=== PATIENT | female | born 1940 | race Caucasian/White ===

== ENCOUNTER 2018-04-06 14:46 | Emergency (ER) | payer BC ==
[2018-04-06 14:55] VITALS: TEMP 98.1; BMI 23.7
[2018-04-06] MEDS ORDERED: ONDANSETRON 4 MG/2 ML VIAL IVPB ONE (15:31)
[2018-04-06] MEDS ORDERED: PANTOPRAZOLE SODIUM 40 MG in SODIUM CHLORIDE 100 ML IVPB ONE (15:31)
[2018-04-06] MEDS ORDERED: ACETAMINOPHEN 1000 MG/100 ML VIAL (NON FORMULARY) IVPB ONE (15:31)
--- NOTE | 2018-04-06 16:18 | PDOC ---
History of Present Illness - General Chief Complaint: Pain, Acute Stated Complaint: EPIGASTRIC& MIDDLE BACK PAIN Time Seen by Provider: 04/06/18 14:59 - History of Present Illness Initial Comments: 04/06/18 16:15 "The patient is a 77 year old female, with a significant past medical history of diabetes, hypertension, hyperlipidemia, and stomach ulcers, who presents to the emergency department with 1 week of diffuse abdominal pain and nausea. The patient describes her pain as constant. The pain radiates from her abdomen to her bilateral flank. She reports diarrhea two days ago which has since resolved. The patient reports going to her PCP who performed an ultrasound of her kidneys and gallbladder and obtained blood work with no abnormal findings. She denies recent fevers, chills, headache or dizziness. She denies recent vomit or constipation. She denies recent dysuria, frequency, urgency or hematuria. She denies recent chest pain or shortness of breath. Allergies: NKA Past surgical history: Appendectomy. Social history: Nonsmoker. Denies EtOH use and recreational drug use. Primary Care Physician: Dr. Vadim Krause " Past History - Past Medical History Allergies/Adverse Reactions: Allergies Allergy/AdvReac Type Severity Reaction Status Date / Time No Known Allergies Allergy Verified 04/06/18 15:04 Home Medications: Ambulatory Orders Acetaminophen W/ Codeine #3 [Tylenol # 3 -] 1 tab PO BID PRN 04/06/18 Atenolol [Tenormin -] 25 mg PO DAILY 04/06/18 Atorvastatin Ca [Lipitor] 80 mg PO HS 04/06/18 Diltiazem Cd [Cardizem Cd -] 180 mg PO DAILY 04/06/18 Metformin HCl [Glucophage] 1,000 mg PO BID 04/06/18 Pantoprazole Sodium 40 mg PO DAILY 04/06/18 Polyethylene Glycol 3350 [Miralax (For Daily Use) -] 17 gm PO ONCE #1 bottle Pramipexole Di-HCl [Pramipexole ER] 0.375 mg PO HS 04/06/18 Topiramate 25 mg PO BID 04/06/18 COPD: No Diabetes: Yes HTN: Yes Hypercholesterolemia: Yes - Surgical History Appendectomy: Yes - Suicide/Smoking/Psychosocial Hx Smoking History: Never smoked Review of Systems - Review of Systems Comments:: 05/13/18 16:16 "GENERAL/CONSTITUTIONAL: No fever or chills. No weakness. HEAD, EYES, EARS, NOSE AND THROAT: No change in vision. No ear pain or discharge. No sore throat. CARDIOVASCULAR: No chest pain or shortness of breath. RESPIRATORY: No cough, wheezing, or hemoptysis. GASTROINTESTINAL: + Abdominal pain. Nausea. No vomiting, or constipation. GENITOURINARY: + flank pain, No dysuria, frequency, or change in urination. MUSCULOSKELETAL: No joint or muscle swelling or pain. No neck or back pain. SKIN: No rash NEUROLOGIC: No headache, vertigo, loss of consciousness, or change in strength/ sensation. ENDOCRINE: No increased thirst. No abnormal weight change. HEMATOLOGIC/LYMPHATIC: No anemia, easy bleeding, or history of blood clots. ALLERGIC/IMMUNOLOGIC: No hives or skin allergy. " *Physical Exam - Vital Signs Last Vital Signs Temp Pulse Resp BP Pulse Ox 98.1 F 54 L 19 106/54 98 04/06/18 14:50 04/06/18 14:50 04/06/18 14:50 04/06/18 14:50 04/06/18 14:50 - Physical Exam Comments: 04/06/18 16:16 "GENERAL: Awake, alert, and fully oriented, in no acute distress. HEAD: No signs of trauma EYES: PERRLA, EOMI, sclera anicteric, conjunctiva clear ENT: Auricles normal inspection, hearing grossly normal, nares patent, oropharynx clear without exudates. Moist mucosa NECK: Nontender, no stepoffs, Normal ROM, supple, no lymphadenopathy, JVD, or masses LUNGS: Breath sounds equal, clear to auscultation bilaterally. No wheezes, and no crackles HEART: Regular rate and rhythm, normal S1 and S2, no murmurs, rubs or gallops ABDOMEN: + Mild diffuse tenderness more pronounced in suprapubic area, normoactive bowel sounds. No guarding, no rebound. No masses BACK: + bilateral CVA tenderness EXTREMITIES: Normal range of motion, no edema. No clubbing or cyanosis. No cords, erythema, or tenderness NEUROLOGICAL: Cranial nerves II through XII intact. 5/5 strength and sensation in all extremities, Normal speech, normal gait, normal cerebellar function SKIN: Warm, Dry, normal turgor, no rashes or lesions noted. " ED Treatment Course - LABORATORY CBC & Chemistry Diagram: 04/06/18 16:35 04/06/18 16:35 - RADIOLOGY Radiology Studies Ordered: Category Date Time Status ABDOMEN & PELVIS CT WITH CONTR [CT] Stat CT Scan 04/06/18 15:30 Ordered CHEST PA & LAT [RAD] Stat Radiology 04/06/18 15:31 Ordered Medical Decision Making - Medical Decision Making 04/06/18 16:17 77 F with abdominal pain and bilateral flank pain. Possible pyelo. Pt with diffuse abdominal tenderness. Will r/o colitis with CT. Pt had US last week that reportedly was negative for volodymyr. - Labs, UA - CTAP - GI cocktail 04/06/18 19:00 Labs and UA unremarkable. Pt signed out to oncoming attending, pending CTAP and re-evaluation Case discussed in detail with oncoming Emergency Physician including history, physical exam and ancillary studies. Oncoming Emergency Physician has assumed care for the patient and will complete the evaluation and treatment. Patient is aware of the plan. *DC/Admit/Observation/Transfer Diagnosis at time of Disposition: Constipation, Gas pain - Discharge Dispostion Disposition: HOME Condition at time of disposition: Stable - Prescriptions Prescriptions: Polyethylene Glycol 3350 [Miralax (For Daily Use) -] 17 gm PO ONCE #1 bottle - Referrals Referrals: Vadim Krause MD [Primary Care Provider] - - Patient Instructions Printed Discharge Instructions: Constipation - Post Discharge Activity - Attestations Physician Attestion: 04/11/18 07:53 I, Dr. Jacinto Nunez MD, attest that this document has been prepared under my direction and personally reviewed by me in its entirety. I further attest, that it accurately reflects all work, treatment, procedures and medical decision -making performed by me.
[2018-04-06] MEDS ORDERED: PANTOPRAZOLE SODIUM 40 MG/100 ML BAG IVPB ONE (16:42)
[2018-04-06] MEDS ORDERED: ACETAMINOPHEN INJECTION 100 ML IVPB ONE (16:42)
[2018-04-06] MEDS ORDERED: ONDANSETRON 4 MG/2 ML VIAL ONE (16:43)
[2018-04-06 16:56] LABS: BASO % 0.5 % (0-2.0); EOS % 1.8 % (0-4.5); HEMATOCRIT 33.6 % (32.4-45.2); HEMOGLOBIN 11.7 GM/dL (10.7-15.3); LYMPH % 25.6 % (8-40); MEAN CELL VOLUME 85.8 fl (80-96); MEAN PLT VOLUME 10.4 fl (7.5-11.1); MONO % 5.1 % (3.8-10.2); PLATELET COUNT 212 K/MM3 (134-434); RBC 3.91 M/mm3 (3.60-5.2); WHITE BLOOD COUNT 7.6 K/mm3 (4.0-10.0)
[2018-04-06 17:06] LABS: URINE APPEARANCE CLEAR; URINE BILIRUBIN NEGATIVE (<2.0 mg/dL); URINE COLOR LTYELLOW; URINE GLUCOSE (UA) NEGATIVE (NEGATIVE); URINE KETONE NEGATIVE (NEGATIVE); URINE LEUK ESTERASE NEGATIVE (NEGATIVE); URINE NITRITE NEGATIVE (NEGATIVE); URINE PROTEIN NEGATIVE (NEGATIVE); URINE UROBILINOGEN NEGATIVE mg/dL (0.2-1.0)
[2018-04-06 17:10] LABS: INR 1.04 (0.82-1.09); PROTHROMBIN TIME (PATIENT) 11.7 SEC (9.7-13.0)
[2018-04-06 17:24] LABS: ALBUMIN 3.4 g/dl (3.4-5.0); ANION GAP 8 (8-16); BLOOD UREA NITROGEN 20 mg/dL (7-18); CALCIUM 8.6 mg/dL (8.5-10.1); CHLORIDE 106 mmol/L (98-107); CO2 25 mmol/L (21-32); GLUCOSE,RANDOM 100 mg/dL (74-106); LIPASE 154 U/L (73-393); POTASSIUM 4.8 mmol/L (3.5-5.1); SGPT/ALT 13 U/L (12-78); SODIUM 139 mmol/L (136-145)
[2018-04-06 17:27] LABS: ALK PHOS 74 U/L (45-117); BILIRUBIN,TOTAL 0.3 mg/dL (0.2-1.0); CREATININE 1.1 mg/dL (0.55-1.02); SGOT/AST 11 U/L (15-37); TOT PROT 6.4 g/dl (6.4-8.2)
[2018-04-06] MEDS ORDERED: SODIUM CHLORIDE 0.9% 500 ML INFUS.BAG IV ONE (19:33)
--- NOTE | 2018-04-06 20:15 | PDOC ---
*Physical Exam - Vital Signs Last Vital Signs Temp Pulse Resp BP Pulse Ox 98.1 F 54 L 19 106/54 98 04/06/18 14:50 04/06/18 14:50 04/06/18 14:50 04/06/18 14:50 04/06/18 14:50 ED Treatment Course - LABORATORY CBC & Chemistry Diagram: 04/06/18 16:35 04/06/18 16:35 - ADDITIONAL ORDERS Additional order review: Laboratory Results 04/06/18 04/06/18 04/06/18 Unknown 17:00 16:35 PT with INR INR PTT (Actin FS) Sodium 139 Potassium 4.8 Chloride 106 Carbon Dioxide 25 Anion Gap 8 BUN 20 H Creatinine 1.1 H Creat Clearance w eGFR 48.42 Random Glucose 100 Lactic Acid 1.8 Calcium 8.6 Total Bilirubin 0.3 AST 11 L ALT 13 Alkaline Phosphatase 74 Creatine Kinase Troponin I Total Protein 6.4 Albumin 3.4 Lipase 154 Urine Color Ltyellow Urine Appearance Clear Urine pH 5.0 Ur Specific [place] 1.010 Urine Protein Negative Urine Glucose (UA) Negative Urine Ketones Negative Urine Blood Negative Urine Nitrite Negative Urine Bilirubin Negative Urine Urobilinogen Negative Ur Leukocyte Esterase Negative 04/06/18 04/06/18 16:35 16:35 PT with INR 11.70 INR 1.04 PTT (Actin FS) 35.0 H Sodium Potassium Chloride Carbon Dioxide Anion Gap BUN Creatinine Creat Clearance w eGFR Random Glucose Lactic Acid Calcium Total Bilirubin AST ALT Alkaline Phosphatase Creatine Kinase 46 Troponin I < 0.02 Total Protein Albumin Lipase Urine Color Urine Appearance Urine pH Ur Specific [place] Urine Protein Urine Glucose (UA) Urine Ketones Urine Blood Urine Nitrite Urine Bilirubin Urine Urobilinogen Ur Leukocyte Esterase 04/06/18 16:35 RBC 3.91 MCV 85.8 MCHC 35.0 RDW 14.0 MPV 10.4 Neutrophils % 67.0 Lymphocytes % 25.6 Monocytes % 5.1 Eosinophils % 1.8 Basophils % 0.5 - Medications Given in the ED: ED Medications Discontinued Medications Generic Name Dose Route Start Last Admin Trade Name Freq PRN Reason Stop Dose Admin Acetaminophen 1,000 mg 04/06/18 15:31 04/06/18 16:54 Ofirmev Injection - IVPB 04/06/18 15:32 1,000 mg ONCE ONE Administration Pantoprazole Sodium 40 mg/ 100 mls @ 200 mls/hr 04/06/18 15:31 04/06/18 16:54 Sodium Chloride IVPB 04/06/18 16:00 200 mls/hr ONCE ONE Administration Ondansetron HCl 4 mg 04/06/18 15:31 04/06/18 16:54 Zofran Injection IVPB 04/06/18 15:32 4 mg ONCE ONE Administration Sodium Chloride 500 ml 04/06/18 19:33 04/06/18 19:55 Normal Saline - IV 04/06/18 19:34 500 ml ONCE ONE Administration Medical Decision Making - Medical Decision Making 04/06/18 20:14 I received the patient on signout. Labs are normal. CT scan resulted: Patient Name: IRA AVENDAÑO THIS IS A PRELIMINARY REPORT FROM IMAGING ENCAPSULATOR DATE OF SERVICE: 2018-04-06 18:45:15 IMAGES: [id number] EXAM: ABDOMEN \T\ PELVIS CT WITH CONTR HISTORY: Abdominal pain COMPARISON: None. FINDINGS: There are mild atelectatic changes at the lung bases Coronary artery calcifications Bilateral renal cysts the largest on the left measuring 7.8 cm The upper abdominal visceral organs are otherwise unremarkable There is no bowel distention The appendix is not visualized although there are no pericecal or right lower quadrant inflammatory changes Mild to moderate fecal retention in the colon The uterus is absent The bladder is normal in contour without thickening No intra-abdominal free air, free fluid or loculated collections THIS DOCUMENT HAS BEEN ELECTRONICALLY SIGNED 04/06/18 20:17 CXR normal EKG NSR Pt feeling better and she will be discharged home. *DC/Admit/Observation/Transfer Diagnosis at time of Disposition: Constipation, Gas pain - Discharge Dispostion Disposition: HOME Condition at time of disposition: Stable Decision to Admit order: No - Prescriptions Prescriptions: Polyethylene Glycol 3350 [Miralax (For Daily Use) -] 17 gm PO ONCE #1 bottle - Referrals Referrals: Vadim Krause MD [Primary Care Provider] - - Patient Instructions Printed Discharge Instructions: Constipation - Post Discharge Activity
[2018-04-06] MEDS ORDERED: LACTULOSE 20 GM/30 ML UDC (FOR ORAL USE ONLY) PO ONE (20:23)
[2018-04-06] MEDS ORDERED: LACTULOSE 20 GM/30 ML UDC (FOR ORAL USE ONLY) ONE (20:27)
[2018-04-06 20:37] VITALS: BP 120/60; PULSE 51
--- NOTE | 2018-04-07 11:10 | EKG ---
Test Reason : Blood Pressure : / mmHG Vent. Rate : 051 BPM Atrial Rate : 051 BPM P-R Int : 164 ms QRS Dur : 084 ms QT Int : 466 ms P-R-T Axes : 055 003 028 degrees QTc Int : 429 ms SINUS BRADYCARDIA OTHERWISE NORMAL ECG NO PREVIOUS ECGS AVAILABLE Confirmed by RIAN WAKEFIELD MD ([id number]) on 04/07/2018 11:09:28 AM Referred By: Confirmed By:RIAN WAKEFIELD MD
== END 2018-04-06 20:37 | disposition home or self-care (01) ==
LOC: JER 14:46
PROC: 3E033GC Introduction of Other Therapeutic Substance into Peripheral Vein, Percutaneous Approach (ICD-10-PCS; principal; 2018-04-06)
PROC: 3E033GC Introduction of Other Therapeutic Substance into Peripheral Vein, Percutaneous Approach (ICD-10-PCS; 2018-04-06)
PROC: 3E033NZ Introduction of Analgesics, Hypnotics, Sedatives into Peripheral Vein, Percutaneous Approach (ICD-10-PCS; 2018-04-06)
DX: K59.00 Constipation, unspecified (principal); R14.1 Gas pain; I10 Essential (primary) hypertension; E78.5 Hyperlipidemia, unspecified; E78.00 Pure hypercholesterolemia, unspecified; E11.9 Type 2 diabetes mellitus without complications; Z79.84 Long term (current) use of oral hypoglycemic drugs; Z87.19 Personal history of other diseases of the digestive system
CPT/HCPCS: 36415; 71046-TC-FY; 74177-TC; 80053; 81003; 82550; 83605; 83690; 84484; 85025; 85610; 85730; 87086; 93005; 93010; 94640; 96365; 96375; 99283-25; J0131

== ENCOUNTER 2019-01-29 07:49 | Day surgery (SDC) | payer BC ==
[2019-01-28 13:45] VITALS: BMI 23.6
[2019-01-29] MEDS ORDERED: LIDOCAINE HCL/PF 2% SDV 5ML VIAL ONE (09:24)
[2019-01-29] MEDS ORDERED: PROPOFOL 20 ML ONE (09:25)
[2019-01-29 10:12] VITALS: BP 114/57; PULSE 61; TEMP 97.8
--- NOTE | 2019-01-30 17:18 | PATH ---
Surgical Pathology Report Patient Name: ENA AVENDÑAO [facility]. Rec. #: [id number] /Age/Gender: 1940 (Age: 78) / F Account: [id number] Location: [facility] Taken: 01/29/2019 Received: 01/29/2019 Reported: 01/30/2019 Physicians: Artie Damon M.D. Specimen(s) Received A: DUODENUM B: ANTRUM Clinical History GERD Postoperative diagnosis: Gastritis Final Diagnosis A. DUODENUM, BIOPSY: DUODENAL MUCOSA WITHOUT SIGNIFICANT PATHOLOGIC FINDINGS. B. ANTRUM, BIOPSY: GASTRIC ANTRAL MUCOSA WITH MILD CHRONIC ACTIVE GASTRITIS. IMMUNOHISTOCHEMICAL STAIN FOR H. PYLORI IS NEGATIVE. Electronically Signed Ena Aj M.D. Gross Description A. Received in formalin, labeled "duodenum" are 2 ceja, irregular portions of soft tissue averaging 0.4 cm. in greatest dimension. The specimens are submitted in toto in one cassette. B. Received in formalin, labeled "antrum" are 2 ceja, irregular portions of soft tissue averaging 0.3 cm. in greatest dimension. The specimens are submitted in toto in one cassette. 01/29/2019 saudi01/29/2019
== END 2019-01-29 10:36 | disposition home or self-care (01) ==
LOC: FASU-ENDO 07:49
PROVIDERS: ATTEND Internal Medicine Gastroenterology
PROC: 0DB68ZX Excision of Stomach, Via Natural or Artificial Opening Endoscopic, Diagnostic (ICD-10-PCS; 2019-01-29)
PROC: 0DB98ZX Excision of Duodenum, Via Natural or Artificial Opening Endoscopic, Diagnostic (ICD-10-PCS; principal; 2019-01-29 09:42)
DX: K29.50 Unspecified chronic gastritis without bleeding (principal); R10.13 Epigastric pain
CPT/HCPCS: 82962; 88305-TC; 88342-TC

== ENCOUNTER 2019-06-01 08:18 | Day surgery (SDC) | payer BC ==
[2019-05-27 10:58] VITALS: BMI 23.8
[2019-06-01] MEDS ORDERED: LIDOCAINE HCL/PF 2% SDV 5ML VIAL ONE (08:28)
[2019-06-01] MEDS ORDERED: PROPOFOL 20 ML ONE ×2 (08:28)
[2019-06-01 10:40] VITALS: BP 135/63; PULSE 58; TEMP 97.9
== END 2019-06-01 10:40 | disposition home or self-care (01) ==
LOC: FASU-ENDO 08:18
PROVIDERS: ATTEND Internal Medicine Gastroenterology
PROC: 0DJD8ZZ Inspection of Lower Intestinal Tract, Via Natural or Artificial Opening Endoscopic (ICD-10-PCS; principal; 2019-06-01 09:38)
DX: Z12.11 Encounter for screening for malignant neoplasm of colon (principal); Z86.010 Personal history of colon polyps
CPT/HCPCS: 82962

== ENCOUNTER 2022-01-22 09:40 | Day surgery (SDC) | payer BC ==
[2022-01-18 13:29] VITALS: BMI 23.6
[2022-01-22] MEDS ORDERED: PROPOFOL 20 ML ONE ×2 (10:17)
[2022-01-22 12:44] VITALS: BP 131/75; PULSE 64; TEMP 98
== END 2022-01-22 12:00 | disposition home or self-care (01) ==
LOC: FASU-ENDO 09:40
PROVIDERS: ATTEND Internal Medicine Gastroenterology
PROC: 0DB68ZX Excision of Stomach, Via Natural or Artificial Opening Endoscopic, Diagnostic (ICD-10-PCS; 2022-01-22)
PROC: 0DB98ZX Excision of Duodenum, Via Natural or Artificial Opening Endoscopic, Diagnostic (ICD-10-PCS; principal; 2022-01-22 10:54)
DX: K29.50 Unspecified chronic gastritis without bleeding (principal); R11.2 Nausea with vomiting, unspecified; R10.13 Epigastric pain
CPT/HCPCS: 82962; 88305-TC; 88342-TC

== ENCOUNTER 2022-04-07 16:30 | Emergency (ER) | payer BC ==
[2022-04-07 16:52] VITALS: BP 150/63; PULSE 48; TEMP 97.7; BMI 25.4
[2022-04-07] MEDS ORDERED: MAG HYDROX/AL HYDROX/SIMETH -MYLANTA- ORAL SUSPENSION PO ONE (17:00)
[2022-04-07] MEDS ORDERED: FAMOTIDINE 20 MG/50 ML IVPB 20 MG in PREMIX 50 IVPB ONE (17:00)
[2022-04-07] MEDS ORDERED: SODIUM CHLORIDE 0.9% 500 ML INFUS.BAG IV ONE (17:00)
[2022-04-07] MEDS ORDERED: ONDANSETRON 4 MG/2 ML VIAL IVPB ONE (17:00)
[2022-04-07] MEDS ORDERED: FAMOTIDINE 20 MG/50 ML IVPB 20 MG/50 ML MG IVPB ONE (17:04)
[2022-04-07] MEDS ORDERED: ONDANSETRON 4 MG/2 ML VIAL ONE (17:04)
[2022-04-07] MEDS ORDERED: MAG HYDROX/AL HYDROX/SIMETH 30 ML UNIT-DOSE CUP ONE (17:05)
[2022-04-07 17:42] LABS: HEMATOCRIT 38.6 % (32.4-45.2); HEMOGLOBIN 13.7 G/dL (10.7-15.3); MCH 29.7 pg (25.7-33.7); MCHC 35.4 g/dl (32.0-36.0); MEAN PLT VOLUME 9.7 fl (7.5-11.1); PLATELET COUNT 257.9 10^3/uL (134-434); RDW 15.4 % (11.6-15.6); WHITE BLOOD COUNT 11.6 10^3/uL (4.0-10.8)
[2022-04-07 17:43] LABS: CALCIUM 9.1 mg/dl (8.5-10)
[2022-04-07 17:49] LABS: ALBUMIN 3.8 g/dl (3.4-5.0); BILIRUBIN,TOTAL 0.8 mg/dl (0.2-1); CREATININE 0.7 mg/dl (0.55-1.3); TOT PROT 6.7 g/dl (6.4-8.2)
[2022-04-07 18:03] LABS: VENOUS BASE EXCESS -2.2 mmol/L (-2-2); VENOUS O2 SATURATION 86.1 % (70-80); VENOUS PCO2 36.6 mmHg (38-52); VENOUS PH 7.398 (7.310-7.410)
[2022-04-07 18:18] LABS: EPITHELIAL CELLS MODERATE /hpf
== END 2022-04-07 23:37 | disposition home or self-care (01) ==
LOC: FER 16:30
PROC: 3E033GC Introduction of Other Therapeutic Substance into Peripheral Vein, Percutaneous Approach (ICD-10-PCS; principal; 2022-04-07)
PROC: 3E033GC Introduction of Other Therapeutic Substance into Peripheral Vein, Percutaneous Approach (ICD-10-PCS; 2022-04-07)
DX: R11.2 Nausea with vomiting, unspecified (principal); R10.9 Unspecified abdominal pain
CPT/HCPCS: 36415; 71045-TC-FY; 74177-TC; 80053; 81003; 81015; 82803; 83605; 83690; 84484; 85027; 87086; 93005; 99285-25; Q9967

== ENCOUNTER 2022-04-23 11:23 | Observation (INO) | payer BC ==
[2022-04-23] MEDS ORDERED: ONDANSETRON 4 MG/2 ML VIAL IVPUSH ONE (13:18)
[2022-04-23] MEDS ORDERED: ONDANSETRON 4 MG/2 ML VIAL ONE (13:38)
[2022-04-23 14:11] LABS: BASO % 0.4 % (0-2.0); EOS % 1.5 % (0-4.5); HEMATOCRIT 37.5 % (32.4-45.2); HEMOGLOBIN 12.4 GM/dL (10.7-15.3); LYMPH % 17.2 % (8-40); MCHC 33.1 g/dl (32.0-36.0); MEAN CELL VOLUME 84.5 fl (80-96); MEAN PLT VOLUME 10.3 fl (7.5-11.1); MONO % 4.2 % (3.8-10.2); NEUT % 76.7 % (42.8-82.8); PLATELET COUNT 258 10^3/uL (134-434); RBC 4.44 M/mm3 (3.60-5.2); RDW 14.3 % (11.6-15.6); WHITE BLOOD COUNT 10.8 K/mm3 (4.0-10.0)
[2022-04-23 14:31] LABS: CALCIUM 9.3 mg/dL (8.5-10.1)
[2022-04-23 14:32] LABS: ALBUMIN 3.6 g/dl (3.4-5.0); BLOOD UREA NITROGEN 20.3 mg/dL (7-18)
[2022-04-23 14:35] LABS: CREATININE 0.8 mg/dL (0.55-1.3)
[2022-04-23 14:37] LABS: BILIRUBIN,TOTAL 0.4 mg/dL (0.2-1); TOT PROT 6.8 g/dl (6.4-8.2)
[2022-04-23 14:58] LABS: ACTIVATED PTT 40.5 SECONDS (25.2-36.5)
[2022-04-23 15:03] LABS: INR 0.98 (0.83-1.09); PROTHROMBIN TIME (PATIENT) 11.3 SEC (9.7-13.0)
[2022-04-23] MEDS ORDERED: ACETAMINOPHEN 325 MG TABLET (FP) PO PRN (18:56)
[2022-04-23] MEDS ORDERED: valACYclovir HCL 500 MG TABLET (FP) ONE (19:26)
[2022-04-23] MEDS: valACYclovir HCL 500 MG TABLET (FP) PO SCH (21:02)
[2022-04-23] MEDS ORDERED: PRAMIPEXOLE DI HCL PO SCH (22:00)
[2022-04-23] MEDS ORDERED: ATORVASTATIN CA 80 MG TABLET (FP) ONE (22:34)
[2022-04-23] MEDS: INSULIN SLIDING SCALE (NOVOLOG) 1 VIAL SQ SCH (22:46)
[2022-04-23] MEDS: ATORVASTATIN CA 80 MG TABLET (FP) PO SCH (23:03)
[2022-04-23] MEDS: NORTRIPTYLINE HCL 25 MG CAPSULE PO SCH (23:07)
[2022-04-23] MEDS: PRAMIPEXOLE DIHYDROCHLORIDE 0.5 MG TABLET PO SCH (23:07)
[2022-04-24] MEDS ORDERED: valACYclovir HCL 500 MG TABLET (FP) ONE ×3 (04:32→18:03)
[2022-04-24] MEDS: valACYclovir HCL 500 MG TABLET (FP) PO SCH ×3 (04:40→18:04)
[2022-04-24 07:04] LABS: BASO % 0.4 % (0-2.0); EOS % 0.5 % (0-4.5); HEMATOCRIT 36.3 % (32.4-45.2); HEMOGLOBIN 12.2 GM/dL (10.7-15.3); LYMPH % 16.1 % (8-40); MCHC 33.5 g/dl (32.0-36.0); MEAN CELL VOLUME 83.8 fl (80-96); MEAN PLT VOLUME 10.3 fl (7.5-11.1); MONO % 3.5 % (3.8-10.2); NEUT % 79.5 % (42.8-82.8); PLATELET COUNT 240 10^3/uL (134-434); RBC 4.34 M/mm3 (3.60-5.2); RDW 14.3 % (11.6-15.6); WHITE BLOOD COUNT 9.5 K/mm3 (4.0-10.0)
[2022-04-24 07:29] LABS: ALBUMIN 3.4 g/dl (3.4-5.0); BLOOD UREA NITROGEN 21.6 mg/dL (7-18); MAGNESIUM 1.6 mg/dL (1.8-2.4)
[2022-04-24 07:32] LABS: CREATININE 0.8 mg/dL (0.55-1.3)
[2022-04-24 07:33] LABS: PHOSPHOROUS 3.7 mg/dL (2.5-4.9); TOT PROT 6.3 g/dl (6.4-8.2)
[2022-04-24 07:34] LABS: BILIRUBIN,TOTAL 0.6 mg/dL (0.2-1)
[2022-04-24] MEDS ORDERED: MAGNESIUM SULF 50% (8.12 MEQ/2 ML-1 GM VIAL) IVPB ONE (07:34)
[2022-04-24] MEDS ORDERED: PANTOPRAZOLE 40 MG TABLET PO ONE (07:56)
[2022-04-24] MEDS ORDERED: MAGNESIUM 1GM/D5W - 1 GM/100 ML IVPB IVPB ONE (07:57)
[2022-04-24] MEDS ORDERED: ENOXAPARIN NA (PORCINE) 40 MG/0.4 ML DISP.SYRIN SQ ONE (07:57)
[2022-04-24] MEDS: INSULIN SLIDING SCALE (NOVOLOG) 1 VIAL SQ SCH ×4 (08:12→23:47)
[2022-04-24] MEDS: ENOXAPARIN NA (PORCINE) 40 MG/0.4 ML DISP.SYRIN SQ SCH (09:35)
[2022-04-24] MEDS: PANTOPRAZOLE 40 MG TABLET PO SCH (09:36)
[2022-04-24] MEDS ORDERED: NADOLOL 40 MG TABLET (FP) PO SCH (10:00)
[2022-04-24] MEDS ORDERED: ACETAMINOPHEN 325 MG TABLET (FP) ONE (13:54)
[2022-04-24] MEDS ORDERED: ATORVASTATIN CA 80 MG TABLET (FP) ONE (23:35)
[2022-04-24] MEDS: ATORVASTATIN CA 80 MG TABLET (FP) PO SCH (23:47)
[2022-04-24] MEDS: PRAMIPEXOLE DIHYDROCHLORIDE 0.5 MG TABLET PO SCH (23:47)
[2022-04-24] MEDS: NORTRIPTYLINE HCL 25 MG CAPSULE PO SCH (23:47)
[2022-04-25 01:39] VITALS: BMI 24.1
[2022-04-25] MEDS: valACYclovir HCL 500 MG TABLET (FP) PO SCH ×2 (02:16→14:12)
[2022-04-25] MEDS: INSULIN SLIDING SCALE (NOVOLOG) 1 VIAL SQ SCH ×2 (06:40→12:00)
[2022-04-25 07:20] LABS: HEMATOCRIT 35.8 % (32.4-45.2); HEMOGLOBIN 12.1 GM/dL (10.7-15.3); MCH 28.3 pg (25.7-33.7); MCHC 33.8 g/dl (32.0-36.0); MEAN CELL VOLUME 83.8 fl (80-96); PLATELET COUNT 232 10^3/uL (134-434); RBC 4.27 M/mm3 (3.60-5.2); RDW 14.2 % (11.6-15.6)
[2022-04-25 07:53] LABS: BLOOD UREA NITROGEN 24.9 mg/dL (7-18); CALCIUM 8.5 mg/dL (8.5-10.1)
[2022-04-25 07:54] LABS: ALBUMIN 3.2 g/dl (3.4-5.0); MAGNESIUM 1.7 mg/dL (1.8-2.4)
[2022-04-25 07:57] LABS: CREATININE 0.7 mg/dL (0.55-1.3); PHOSPHOROUS 3.4 mg/dL (2.5-4.9)
[2022-04-25 07:58] LABS: BILIRUBIN,TOTAL 0.4 mg/dL (0.2-1)
[2022-04-25 07:59] LABS: TOT PROT 6.4 g/dl (6.4-8.2)
[2022-04-25] MEDS: NADOLOL 20 MG TABLET (FP) PO SCH ×2 (08:33→14:20)
[2022-04-25] MEDS: LISINOPRIL 5 MG TABLET PO SCH ×2 (08:34→14:20)
[2022-04-25] MEDS ORDERED: REGADENOSON 0.4 MG/5 ML PRE-FILLED SYRINGE IVPUSH ONE ×2 (09:39→10:00)
[2022-04-25] MEDS ORDERED: MAGNESIUM 1GM/D5W - 1 GM/100 ML IVPB IVPB ONE ×2 (10:15→15:00)
[2022-04-25] MEDS: PANTOPRAZOLE 40 MG TABLET PO SCH (14:11)
[2022-04-25] MEDS: ENOXAPARIN NA (PORCINE) 40 MG/0.4 ML DISP.SYRIN SQ SCH (14:12)
[2022-04-25 14:37] VITALS: TEMP 97.8
[2022-04-25] MEDS ORDERED: MAGNESIUM OXIDE 400 MG TABLET (FP) PO ONE (15:06)
[2022-04-25 15:11] VITALS: BP 138/75; PULSE 75
== END 2022-04-25 18:00 | disposition home or self-care (01) ==
LOC: JER 11:23 → JERBED 13:26 → INTOOBSV 13:26 → J4W 04-25 00:20
PROVIDERS: ADMIT Internal Medicine; ATTEND Internal Medicine
PROC: 3E023GC Introduction of Other Therapeutic Substance into Muscle, Percutaneous Approach (ICD-10-PCS; principal; 2022-04-23)
PROC: 3E033GC Introduction of Other Therapeutic Substance into Peripheral Vein, Percutaneous Approach (ICD-10-PCS; 2022-04-23)
DX: R00.1 Bradycardia, unspecified (principal); R77.8 Other specified abnormalities of plasma proteins; I10 Essential (primary) hypertension; E11.9 Type 2 diabetes mellitus without complications; Z79.82 Long term (current) use of aspirin; Z90.79 Acquired absence of other genital organ(s)
CPT/HCPCS: 36415; 71046-TC-FY; 78452-TC; 80053; 80061; 82962; 83036; 83735; 83880; 84100; 84443; 84484; 85025; 85027; 85610; 85730; 93005; 93010; 93017; 93306-TC; 96372; 96374; 96375; 99285-25; A9502; C9803-CS; G0378; J2785; U0003; U0005

== ENCOUNTER 2023-12-26 10:48 | Emergency (ER) | payer BC ==
[2023-12-26 11:15] VITALS: BMI 23.2
[2023-12-26] MEDS ORDERED: TETRACAINE 0.5% HCL 0.6ML DROPPER.BOTTLE OS ONE (12:27)
[2023-12-26] MEDS ORDERED: FLUORESCEIN NA 1 EA STRIP OS ONE (12:30)
[2023-12-26] MEDS ORDERED: IBUPROFEN 400 MG TABLET (FP) PO ONE ×2 (12:41→13:25)
[2023-12-26] MEDS ORDERED: FLUORESCEIN NA 1 EA STRIP ONE (13:23)
[2023-12-26] MEDS ORDERED: TETRACAINE 0.5% OPHTH SOLN 2 ML BOTTLE ONE (13:23)
[2023-12-26] MEDS ORDERED: ACETAMINOPHEN 325 MG TABLET (FP) PO ONE (14:36)
[2023-12-26 14:45] LABS: BASO % 0.7 % (0-2.0); HEMATOCRIT 38.4 % (32.4-45.2); HEMOGLOBIN 13.2 GM/dL (10.7-15.3); MCH 29.5 pg (25.7-33.7); MCHC 34.2 g/dl (32.0-36.0); MEAN CELL VOLUME 86.1 fl (80-96); MEAN PLT VOLUME 9.3 fl (7.5-11.1); MONO % 6.7 % (3.8-10.2); NEUT % 74.6 % (42.8-82.8); PLATELET COUNT 224 10^3/uL (134-434); RBC 4.47 M/mm3 (3.60-5.2); RDW 14.2 % (11.6-15.6); WHITE BLOOD COUNT 6.7 K/mm3 (4.0-10.0)
[2023-12-26] MEDS ORDERED: ACETAMINOPHEN 325 MG TABLET (FP) ONE (14:56)
[2023-12-26 14:59] LABS: POTASSIUM 4.6 mmol/L (3.5-5.1)
[2023-12-26 15:01] LABS: ALBUMIN 3.7 g/dl (3.4-5.0); BLOOD UREA NITROGEN 17.7 mg/dL (7-18); CALCIUM 9.4 mg/dL (8.5-10.1)
[2023-12-26 15:04] LABS: CREATININE 0.8 mg/dL (0.55-1.3)
[2023-12-26 15:06] LABS: BILIRUBIN,TOTAL 0.5 mg/dL (0.2-1); TOT PROT 6.8 g/dl (6.4-8.2)
[2023-12-26 18:21] VITALS: BP 132/81; PULSE 63; RESP 16; TEMP 97.9
== END 2023-12-26 18:22 | disposition home or self-care (01) ==
LOC: JER 10:48
DX: L03.213 Periorbital cellulitis (principal); H57.12 Ocular pain, left eye; B02.32 Zoster iridocyclitis
CPT/HCPCS: 36415; 70481-TC; 80053; 85025; 99285-25; Q9967

== ENCOUNTER 2024-09-01 13:22 | Emergency (ER) | payer BC ==
[2024-09-01 13:34] VITALS: TEMP 98; BMI 23.6
[2024-09-01 15:15] LABS: BASO % 1.1 % (0-2.0); EOS % 0.7 % (0-4.5); HEMATOCRIT 38.2 % (32.4-45.2); HEMOGLOBIN 12.9 GM/dL (10.7-15.3); LYMPH % 25.1 % (8-40); MCHC 33.8 g/dl (32.0-36.0); MEAN CELL VOLUME 85.9 fl (80-96); MONO % 5.1 % (3.8-10.2); PLATELET COUNT 225 10^3/uL (134-434); RBC 4.45 M/mm3 (3.60-5.2); RDW 13.8 % (11.6-15.6); WHITE BLOOD COUNT 7.9 K/mm3 (4.0-10.0)
[2024-09-01 15:27] LABS: INR 0.99 (0.83-1.09); PROTHROMBIN TIME (PATIENT) 11.4 SEC (9.7-13.0)
[2024-09-01 15:29] LABS: POTASSIUM 4.7 mmol/L (3.5-5.1)
[2024-09-01 15:30] LABS: ACTIVATED PTT 36.7 SECONDS (25.2-36.5)
[2024-09-01 15:31] LABS: CALCIUM 9.4 mg/dL (8.5-10.1)
[2024-09-01 15:32] LABS: ALBUMIN 3.6 g/dl (3.4-5.0); BLOOD UREA NITROGEN 18.2 mg/dL (7-18); MAGNESIUM 1.3 mg/dL (1.8-2.4)
[2024-09-01 15:35] LABS: CREATININE 0.7 mg/dL (0.55-1.3)
[2024-09-01 15:36] LABS: BILIRUBIN,TOTAL 0.5 mg/dL (0.2-1); TOT PROT 6.6 g/dl (6.4-8.2)
[2024-09-01 15:40] LABS: N-TERMINAL BNP 400.3 pg/ml (5-450)
[2024-09-01 16:20] VITALS: PULSE 51; RESP 15
[2024-09-01] MEDS ORDERED: LISINOPRIL 20 MG TABLET ONE (16:24)
[2024-09-01] MEDS ORDERED: KETOROLAC TROMETHAMINE 15 MG/ML VIAL ONE (16:24)
[2024-09-01] MEDS ORDERED: MAGNESIUM SULFATE IN WATER 2 GM/50 ML IVPB IVPB ONE ×2 (16:25→16:27)
[2024-09-01 16:44] LABS: HIV INTERPRETATION NEGATIVE (NEGATIVE)
[2024-09-01] MEDS: KETOROLAC TROMETHAMINE 15 MG/ML VIAL IVPUSH ONE (16:45)
[2024-09-01] MEDS: LISINOPRIL 20 MG TABLET PO ONE (16:46)
[2024-09-01] MEDS: MAGNESIUM SULFATE IN WATER 2 GM/50 ML IVPB IVPB ONE (16:46)
[2024-09-01] MEDS: LACTATED RINGERS SOLUTION 1000 ML INFUS.BAG IV ONE (17:18)
[2024-09-01 17:23] VITALS: BP 159/65
[2024-09-01 20:25] LABS: ALBUMIN 3.3 g/dl (3.4-5.0); BILIRUBIN,TOTAL 0.4 mg/dL (0.2-1); BLOOD UREA NITROGEN 14.4 mg/dL (7-18); CALCIUM 8.9 mg/dL (8.5-10.1); CREATININE 0.7 mg/dL (0.55-1.3); POTASSIUM 3.8 mmol/L (3.5-5.1); TOT PROT 6.2 g/dl (6.4-8.2)
== END 2024-09-01 22:19 | disposition home or self-care (01) ==
LOC: JER 13:22
PROC: 3E033GC Introduction of Other Therapeutic Substance into Peripheral Vein, Percutaneous Approach (ICD-10-PCS; principal; 2024-09-01)
PROC: 3E0333Z Introduction of Anti-inflammatory into Peripheral Vein, Percutaneous Approach (ICD-10-PCS; 2024-09-01)
DX: G43.901 Migraine, unspecified, not intractable, with status migrainosus (principal); R53.1 Weakness; I10 Essential (primary) hypertension; R42 Dizziness and giddiness; R06.02 Shortness of breath; R51.9 Headache, unspecified; R53.83 Other fatigue; R11.10 Vomiting, unspecified; R10.9 Unspecified abdominal pain; Z20.822 Contact with and (suspected) exposure to COVID-19
CPT/HCPCS: 0241U-QW; 36415; 70450-TC; 71045-TC-FY; 80053; 83735; 83880; 84484; 85025; 85610; 85730; 86803; 86850; 86900; 86901; 87086; 87389; 93005; 93010; 96365; 96375; 99285-25

== ENCOUNTER 2025-01-07 10:58 | Emergency (ER) | payer BC ==
[2025-01-07 11:17] VITALS: BMI 32.1
[2025-01-07] MEDS ORDERED: ACETAMINOPHEN INJECTION 100 ML ONE (12:09)
[2025-01-07] MEDS ORDERED: ONDANSETRON 4 MG/2 ML VIAL ONE (12:09)
[2025-01-07 12:15] LABS: BASO % 0.9 % (0-2.0); EOS % 1.3 % (0-4.5); HEMATOCRIT 37.1 % (32.4-45.2); HEMOGLOBIN 12.2 GM/dL (10.7-15.3); LYMPH % 17.9 % (8-40); MCH 28.4 pg (25.7-33.7); MCHC 32.8 g/dl (32.0-36.0); MEAN CELL VOLUME 86.6 fl (80-96); MONO % 5.1 % (3.8-10.2); NEUT % 74.8 % (42.8-82.8); PLATELET COUNT 247 10^3/uL (134-434); RBC 4.29 M/mm3 (3.60-5.2); RDW 13.9 % (11.6-15.6); WHITE BLOOD COUNT 9.1 K/mm3 (4.0-10.0)
[2025-01-07] MEDS: SODIUM CHLORIDE 1,000 ML IV STA (12:17)
[2025-01-07] MEDS: ACETAMINOPHEN 1000 MG/100 ML BAG IVPB ONE (12:17)
[2025-01-07] MEDS: ONDANSETRON 4 MG/2 ML VIAL IVPUSH ONE (12:18)
[2025-01-07 12:21] LABS: INR 1.09 (0.83-1.09)
[2025-01-07 12:23] LABS: ACTIVATED PTT 36.9 SECONDS (25.2-36.5)
[2025-01-07 12:26] VITALS: RESP 18
[2025-01-07 12:41] LABS: POTASSIUM 4.5 mmol/L (3.5-5.1)
[2025-01-07] MEDS ORDERED: MECLIZINE HCL 25 MG TABLET (FP) ONE (12:42)
[2025-01-07 12:43] LABS: ALBUMIN 3.4 g/dl (3.4-5.0); CALCIUM 9.5 mg/dL (8.5-10.1)
[2025-01-07 12:44] LABS: BLOOD UREA NITROGEN 14.1 mg/dL (7-18)
[2025-01-07 12:47] LABS: CREATININE 0.8 mg/dL (0.55-1.3)
[2025-01-07 12:48] LABS: BILIRUBIN,TOTAL 0.5 mg/dL (0.2-1); TOT PROT 6.5 g/dl (6.4-8.2)
[2025-01-07] MEDS: MECLIZINE HCL 25 MG TABLET (FP) PO ONE (12:50)
[2025-01-07 13:39] VITALS: TEMP 97.7
[2025-01-07 15:59] VITALS: BP 148/76; PULSE 80
== END 2025-01-07 15:36 | disposition home or self-care (01) ==
LOC: JER 10:58
PROC: 3E033NZ Introduction of Analgesics, Hypnotics, Sedatives into Peripheral Vein, Percutaneous Approach (ICD-10-PCS; principal; 2025-01-07)
PROC: 3E033GC Introduction of Other Therapeutic Substance into Peripheral Vein, Percutaneous Approach (ICD-10-PCS; 2025-01-07)
PROC: 3E0337Z Introduction of Electrolytic and Water Balance Substance into Peripheral Vein, Percutaneous Approach (ICD-10-PCS; 2025-01-07)
DX: R51.9 Headache, unspecified (principal); R07.89 Other chest pain; M79.10 Myalgia, unspecified site; R06.02 Shortness of breath; Z20.822 Contact with and (suspected) exposure to COVID-19
CPT/HCPCS: 0241U-QW; 36415; 71045-TC-FY; 80053; 83690; 84484; 85025; 85610; 85730; 93005; 93010; 99285-25; J0131